=== PATIENT | male | born 1955 | race Caucasian/White ===

== ENCOUNTER 2016-12-31 21:28 | Emergency (ER) | payer MEDICAID ==
[2016-12-31 21:35] VITALS: BP 106/72; PULSE 71; RESP 16; TEMP 97.7; O2SAT 97
--- NOTE | 2016-12-31 22:14 | EDPHY ---
H & P Stated Complaint: Fall down 2 stairs and hurt left elbow denies hitting head Time Seen by Provider: 12/31/16 22:06 HPI/ROS: CHIEF COMPLAINT: Left arm pain HISTORY OF PRESENT ILLNESS: Patient is a 61-year-old man with a history of HIV and seizures who states that he [place] the [place] [facility] [place] He fell onto his left arm. He complains of swelling and pain to his left elbow and hand. This happened several hours ago. He also thinks that he may have strained a muscle in his shoulder. He denies head neck or back pain. He denies loss of consciousness. REVIEW OF SYSTEMS: Constitutional: denies: chills, fever, recent illness, recent injury EENTM: denies: blurred vision, double vision, nose congestion Respiratory: denies: cough, shortness of breath Cardiac: denies: chest pain, irregular heart rate, lightheadedness, palpitations Gastrointestinal/Abdominal: denies: abdominal pain, diarrhea, nausea, vomiting, blood streaked stools Genitourinary: denies: dysuria, frequency, hematuria, pain Musculoskeletal: See HPI Skin: denies: lesions, rash, jaundice, bruising Neurological: denies: headache, numbness, paresthesia, tingling, dizziness, weakness Hematologic/Lymphatic: denies: blood clots, easy bleeding, easy bruising Immunologic/allergic: denies: HIV/AIDS, transplant EXAM: GENERAL: Well-appearing, well-nourished and in no acute distress. HEAD: Atraumatic, normocephalic. EYES: Pupils equal round and reactive to light, extraocular movements intact, sclera anicteric, conjunctiva are normal. ENT: TMs normal, nares patent, oropharynx clear without exudates. Moist mucous membranes. NECK: Normal range of motion, supple without lymphadenopathy or JVD. LUNGS: Breath sounds clear to auscultation bilaterally and equal. No wheezes rales or rhonchi. HEART: Regular rate and rhythm without murmurs, rubs or gallops. ABDOMEN: Soft, nontender, normoactive bowel sounds. No guarding, no rebound. No masses appreciated. BACK: No CVA tenderness, no spinal tenderness, step-offs or deformities EXTREMITIES: Pain to left elbow with minimal swelling. Tenderness or radial head. Pain and swelling over lateral metacarpal bones. Pain with supination. NEUROLOGICAL: Cranial nerves II through XII grossly intact. Normal speech, normal gait. 5/5 strength, normal movement in all extremities, normal sensation PSYCH: Normal mood, normal affect. SKIN: Warm, dry, normal turgor, no visible rashes or lesions. Source: Patient Exam Limitations: No limitations - Personal History Current Tetanus/Diphtheria Vaccine: No Current Tetanus Diphtheria and Acellular Pertussis (TDAP): No - Medical/Surgical History Hx Asthma: No Hx Chronic Respiratory Disease: No Hx Diabetes: No Hx Cardiac Disease: No Hx Renal Disease: No Hx Cirrhosis: No Hx Alcoholism: No Hx HIV/AIDS: Yes Hx Splenectomy or Spleen Trauma: No Other PMH: HIV, SZ, Ortho fx right leg - Family History Significant Family History: No pertinent family hx - Social History Smoking Status: Never smoked Alcohol Use: Sober Drug Use: None Constitutional: Initial Vital Signs Temperature (C) 36.5 C 12/31/16 21:31 Heart Rate 71 12/31/16 21:31 Respiratory Rate 16 12/31/16 21:31 Blood Pressure 106/72 12/31/16 21:31 O2 Sat (%) 97 12/31/16 21:31 O2 Delivery Mode Room Air Allergies/Adverse Reactions: No Known Allergies Allergy (Verified 12/31/16 21:35) Home Medications: Medication Instructions Recorded Levitiraciman 10/22/10 Sustiva 10/22/10 Triameq 05/30/15 Ambien 12/31/16 GABAPENTIN 12/31/16 Medical Decision Making - Diagnostics Imaging Results: Imaging Impressions Elbow X-Ray 12/31/16 22:11 Impression: Moderate elbow joint effusion. This can sometimes be seen with occult fracture. If symptoms persist after 7-10 days, consider repeat imaging. Hand X-Ray 12/31/16 22:11 Impression: 1. Old fracture suspected of the triquetrum with calcifications posteriorly. 2. No acute osseous abnormality seen.. Shoulder X-Ray 12/31/16 22:11 Impression: Normal left shoulder series. Imaging: Discussed imaging studies w/ house calls nurse practitioner Radiologist Procedures: Procedure: Splint placement. A left arm sling splint was applied. After application of the splint I returned and re-examined the patient. The splint was adequately immobilizing the joint and distal to the splint the patient's circulation and sensation was intact. ED Course/Re-evaluation: We discussed the x-ray results. The patient is reassured. We discussed the fact that his elbow x-ray is negative but there is some swelling that could be consistent with an occult fracture. He does have pain over the radial head and supination. I will place him in a sling and have him follow up with Orthopedics. Differential Diagnosis: Partial list of the Differential diagnosis considered include but were not limited to; elbow fracture, contusion, hand fracture and although unlikely based on the history and physical exam, I also considered head injury, neck injury, vascular injury, nerve injury. I discussed these differential diagnoses and the plan with the patient as well as the usual and expected course. The patient understands that the diagnosis is provisional and that in medicine we are not always correct and that further workup is often warranted. Usual and customary warnings were given. All of the patient's questions were answered. The patient was instructed to return to the emergency department should the symptoms at all worsen or return, otherwise to followup with the physician as we discussed. - Data Points Medications Given: Discontinued Medications Hydrocodone Bitart/Acetaminophen ([place] 5/325mg Prepack#6) 1 btl TAKEHOME EDNOW ONE Stop: 12/31/16 23:04 Last Admin: 12/31/16 23:08 Dose: 1 btl Departure - Departure Disposition: Home, Routine, Self-Care Clinical Impression: Elbow pain, left, Left hand pain Condition: Good Instructions: Hydrocodone/Acetaminophen (By mouth), Elbow Fracture (ED) Additional Instructions: You may have an occult elbow fracture. Follow up with Orthopedics for repeat imaging if your pain continues. Referrals: Violeta Carey MD [Primary Care Provider] - As per Instructions Callum Bruce MD [Medical Doctor] - As per Instructions
[2016-12-31] MEDS ORDERED: HYDROCOD/APAP 5/325 PREPACK#6 BTL TAKEHOME ONE (23:03)
== END 2016-12-31 23:34 | disposition home or self-care (01) ==
DX: S59.902A Unspecified injury of left elbow, initial encounter (principal); S69.92XA Unspecified injury of left wrist, hand and finger(s), initial encounter; B20 Human immunodeficiency virus [HIV] disease; W10.8XXA Fall (on) (from) other stairs and steps, initial encounter
CPT/HCPCS: A4565

== ENCOUNTER 2017-05-20 14:28 | Emergency (ER) | payer OTHER, MEDICAID ==
[2017-05-20 14:34] VITALS: RESP 18
--- NOTE | 2017-05-20 14:51 | EDPHY ---
HPI/HX/ROS/PE/MDM Narrative: CHIEF COMPLAINT: Weakness, blurry vision HPI: The patient is a 61 y/o male with a history of HIV complaining of fatigue and having poor vision, onset 6 days ago. For the past 6 days he has felt unsteady, weak, and like he is going to pass out, primarily when walking. When these symptoms begin, he also feels sweaty and has blurry vision. Yesterday he had one episode of non-bloody, acidic vomit. The stated complaint is abdominal pain , but the patient is not currently complaining of this. He is compliant with his seizure and HIV medications. His viral load was last tested on December 2016 and his CD4 was 700 which is normal for him. Denies recent head injury. Denies chest pain, shortness of breath, fever, numbness. REVIEW OF SYSTEMS: Aside from elements discussed in the HPI, a comprehensive 10-point review of systems was reviewed and is negative. PMH: HIV, seizures post head injury SOCIAL HISTORY: Lives in [place], single, not employed PHYSICAL EXAM: General: Patient is alert, in no acute distress. ENT: Eyes are normal to inspection. ENT inspection normal. Neck: Normal inspection. Full range of motion. No menigismus. Respiratory: No respiratory distress. Breath sounds normal bilaterally. Cardiovascular: Regular rate and rhythm. Strong peripheral pulses. Normal cap refill. Abdomen: The abdomen is nontender to palpation. There are no peritoneal signs. There are normal bowel sounds. Back: Normal to inspection. No tenderness to palpation. Skin: Normal color. No rash. Warm and dry. Extremities: Normal appearance. Full range of motion. Neuro: Oriented x3. Normal motor function. Normal sensory function. Normal gait. No cerebellar signs. Cranial nerves intact. Portions of this note were transcribed by an ED scribe. I personally performed the history, physical exam, and medical decision making; and confirm the accuracy of the information in the transcribed note. ED Course: 1538: Spoke with Dr. Jaime, radiologist, patient's head CT is normal. 1517: Laboratory results are normal; RPR pending and will be run at 03:00am. 1518: Reassessed patient and discussed imaging and laboratory findings. He is feeling better after 1L IV NS and would like to eat. I have advised him to call the emergency department tomorrow for the RPR results. Return precautions provided; patient is comfortable with this plan. MDM: This patient presents with fairly vague symptoms of generalized weakness and abnormal bilateral vision. He is stating some theories about how his stomach and brain are linked that I do not quite understand. He has a normal physical exam, relatively normal labs and a negative CTH. He describes himself as hungry and is tolerating PO without difficulty, making serious abdominal pathology unlikely. I think he is safe for outpatient workup. HIV obviously increases differential, but patient states his disease has been well controlled for quite some time. - Data Points Imaging Results: Imaging Impressions Head CT 05/20/17 14:57 Impression: 1. No acute intracranial process. 2. 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 Findings discussed with Emergency Department physician, Jared Rasheed MD at 05/20/2017 15:38. Imaging: Discussed imaging studies w/ inbound call center agent Radiologist, I viewed and interpreted images myself Laboratory Results: Laboratory Results 05/20/17 15:10 05/20/17 15:10 05/20/17 05/20/17 05/20/17 16:45 15:10 15:10 WBC RBC Hgb Hct MCV MCH MCHC RDW Plt Count MPV Neut % (Auto) Lymph % (Auto) Kent % (Auto) Eos % (Auto) Baso % (Auto) Nucleat RBC Rel Count Absolute Neuts (auto) Absolute Lymphs (auto) Absolute Monos (auto) Absolute Eos (auto) Absolute Basos (auto) Absolute Nucleated RBC Immature Gran % Immature Gran # Sodium 143 mEq/L mEq/L (135-145) Potassium 3.8 mEq/L mEq/L (3.5-5.2) Chloride 107 mEq/L mEq/L (97-110) Carbon Dioxide 23 mEq/l mEq/l (22-31) Anion Gap 13 mEq/L mEq/L (8-16) BUN 19 mg/dL mg/dL (7-23) Creatinine 0.9 mg/dL mg/dL (0.7-1.3) Estimated GFR > 60 Glucose 111 mg/dL H mg/dL (70-100) Calcium 8.8 mg/dL mg/dL (8.5-10.4) Total Bilirubin 0.3 mg/dL mg/dL (0.1-1.4) Conjugated Bilirubin 0.2 mg/dL mg/dL (0.0-0.5) Unconjugated Bilirubin 0.1 mg/dL mg/dL (0.0-1.1) AST 17 IU/L IU/L (17-59) ALT 31 IU/L IU/L (21-72) Alkaline Phosphatase 123 IU/L IU/L (38-126) Total Protein 7.1 g/dL g/dL (6.3-8.2) Albumin 4.0 g/dL g/dL (3.5-5.0) Lipase 47 IU/L IU/L (23-300) Urine Color PALE YELLOW Urine Appearance CLEAR Urine pH 8.0 H (5.0-7.5) Ur Specific Darling 1.008 (1.002-1.030) Urine Protein NEGATIVE (NEGATIVE) Urine Ketones NEGATIVE (NEGATIVE) Urine Blood NEGATIVE (NEGATIVE) Urine Nitrate NEGATIVE (NEGATIVE) Urine Bilirubin NEGATIVE (NEGATIVE) Urine Urobilinogen NEGATIVE EU EU (0.2-1.0) Ur Leukocyte Esterase NEGATIVE (NEGATIVE) Urine Glucose NEGATIVE (NEGATIVE) RPR Pending 05/20/17 15:10 WBC 8.68 10^3/uL 10^3/uL (3.80-9.50) RBC 3.97 10^6/uL L 10^6/uL (4.40-6.38) Hgb 14.6 g/dL g/dL (13.7-17.5) Hct 41.2 % % (40.0-51.0) MCV 103.8 fL H fL (81.5-99.8) MCH 36.8 pg H pg (27.9-34.1) MCHC 35.4 g/dL g/dL (32.4-36.7) RDW 12.0 % % (11.5-15.2) Plt Count 214 10^3/uL 10^3/uL (150-400) MPV 9.8 fL fL (8.7-11.7) Neut % (Auto) 78.7 % H % (39.3-74.2) Lymph % (Auto) 15.3 % % (15.0-45.0) Kent % (Auto) 5.3 % % (4.5-13.0) Eos % (Auto) 0.2 % L % (0.6-7.6) Baso % (Auto) 0.2 % L % (0.3-1.7) Nucleat RBC Rel Count 0.0 % % (0.0-0.2) Absolute Neuts (auto) 6.82 10^3/uL H 10^3/uL (1.70-6.50) Absolute Lymphs (auto) 1.33 10^3/uL 10^3/uL (1.00-3.00) Absolute Monos (auto) 0.46 10^3/uL 10^3/uL (0.30-0.80) Absolute Eos (auto) 0.02 10^3/uL L 10^3/uL (0.03-0.40) Absolute Basos (auto) 0.02 10^3/uL 10^3/uL (0.02-0.10) Absolute Nucleated RBC 0.00 10^3/uL 10^3/uL (0-0.01) Immature Gran % 0.3 % % (0.0-1.1) Immature Gran # 0.03 10^3/uL 10^3/uL (0.00-0.10) Sodium Potassium Chloride Carbon Dioxide Anion Gap BUN Creatinine Estimated GFR Glucose Calcium Total Bilirubin Conjugated Bilirubin Unconjugated Bilirubin AST ALT Alkaline Phosphatase Total Protein Albumin Lipase Urine Color Urine Appearance Urine pH Ur Specific Darling Urine Protein Urine Ketones Urine Blood Urine Nitrate Urine Bilirubin Urine Urobilinogen Ur Leukocyte Esterase Urine Glucose RPR Medications Given: Discontinued Medications Sodium Chloride (Ns) 1,000 mls @ 0 mls/hr IV EDNOW ONE; Wide Open PRN Reason: Protocol Stop: 05/20/17 14:58 Last Admin: 05/20/17 15:07 Dose: 1,000 mls General Time Seen by Provider: 05/20/17 14:50 Initial Vital Signs: Initial Vital Signs Temperature (C) 36.8 C 05/20/17 14:32 Heart Rate 70 05/20/17 14:32 Respiratory Rate 18 05/20/17 14:32 Blood Pressure 109/71 05/20/17 14:32 O2 Sat (%) 99 05/20/17 14:32 O2 Delivery Mode Room Air Allergies/Adverse Reactions: No Known Allergies Allergy (Verified 05/20/17 14:32) Home Medications: Medication Instructions Recorded Levitiraciman 08/27/11 Sustiva 10/22/10 Triameq 05/30/15 Ambien 12/31/16 GABAPENTIN 12/31/16 Departure - Departure Disposition: Home, Routine, Self-Care Clinical Impression: Dizziness Condition: Good Instructions: Lightheadedness (ED), Dizziness (ED) Additional Instructions: You need to call the emergency department tomorrow for your RPR results. Follow- up with your primary doctor within 72 hours. Return to the Emergency Department for fever, chest pain, shortness of breath, increasing pain or other worsening of condition. Referrals: Violeta Carey MD [Primary Care Provider] - As per Instructions Report Scribed for: Jared Rasheed Report Scribed by: Melva Schwartz Date of Report: 05/20/17 Time of Report: 14:51
[2017-05-20] MEDS ORDERED: NS 1,000 ML IV ONE (14:57)
[2017-05-20 15:23] LABS: PLATELET COUNT 214 10^3/uL (150-400)
[2017-05-20 17:28] VITALS: BP 129/81; PULSE 60; TEMP 98.6; O2SAT 95
== END 2017-05-20 17:32 | disposition home or self-care (01) ==
DX: R42 Dizziness and giddiness (principal); E86.9 Volume depletion, unspecified; B20 Human immunodeficiency virus [HIV] disease

== ENCOUNTER 2017-11-06 14:08 | Emergency (ER) | payer OTHER, MEDICAID ==
[2017-11-06] MEDS ORDERED: PROPARACAINE 0.5% 15 ML OPHT DROP ONE (14:32)
[2017-11-06] MEDS ORDERED: FLUORESCEIN SODIUM 1 MG STRIP OP ONE (14:32)
--- NOTE | 2017-11-06 15:24 | EDPHY ---
H & P Stated Complaint: CONJUNCTIVAL HEMORRHAGE L EYE SINCE YESTERDAY Time Seen by Provider: 11/06/17 15:15 HPI/ROS: CHIEF COMPLAINT: Subconjunctival hemorrhage HISTORY OF PRESENT ILLNESS: Patient is a 61-year-old man who states that when he woke up this morning he had a subconjunctival hemorrhage in his left eye. He also has a mild foreign body sensation. No pain. No vision changes. No known trauma. No discharge. Severity: Mild Modifying factors: None REVIEW OF SYSTEMS: Constitutional: denies: chills, fever, recent illness, recent injury EENTM: See HPI denies: blurred vision, double vision, nose congestion Respiratory: denies: cough, shortness of breath Cardiac: denies: chest pain, irregular heart rate, lightheadedness, palpitations Gastrointestinal/Abdominal: denies: abdominal pain, diarrhea, nausea, vomiting, blood streaked stools Genitourinary: denies: dysuria, frequency, hematuria, pain Musculoskeletal: denies: joint pain, muscle pain Skin: denies: lesions, rash, jaundice, bruising Neurological: denies: headache, numbness, paresthesia, tingling, dizziness, weakness Hematologic/Lymphatic: denies: blood clots, easy bleeding, easy bruising Immunologic/allergic: denies: HIV/AIDS, transplant 10 systems reviewed and negative except as noted EXAM: GENERAL: Well-appearing, well-nourished and in no acute distress. HEAD: Atraumatic, normocephalic. EYES: Subconjunctival hemorrhage left eye. Does not involve the cornea or iris. No hyphema or hypopyon. No eyelid involvement. Pupils equal round and reactive to light, extraocular movements intact, sclera anicteric. Evaluated with fluorescein and no visible abrasions or foreign bodies. Negative Sahara sign. ENT: TMs normal, nares patent, oropharynx clear without exudates. Moist mucous membranes. NECK: Normal range of motion, supple without lymphadenopathy or JVD. LUNGS: Breath sounds clear to auscultation bilaterally and equal. No wheezes rales or rhonchi. HEART: Regular rate and rhythm without murmurs, rubs or gallops. ABDOMEN: Soft, nontender, normoactive bowel sounds. No guarding, no rebound. No masses appreciated. BACK: No CVA tenderness, no spinal tenderness, step-offs or deformities EXTREMITIES: Normal range of motion, no pitting or edema. No clubbing or cyanosis. NEUROLOGICAL: Cranial nerves II through XII grossly intact. Normal speech, normal gait. 5/5 strength, normal movement in all extremities, normal sensation , normal reflexes PSYCH: Normal mood, normal affect. SKIN: Warm, dry, normal turgor, no visible rashes or lesions. Source: Patient Exam Limitations: No limitations - Personal History Current Tetanus Diphtheria and Acellular Pertussis (TDAP): Unsure - Medical/Surgical History Hx Asthma: No Hx Chronic Respiratory Disease: No Hx Diabetes: No Hx Cardiac Disease: No Hx Renal Disease: No Hx Cirrhosis: No Hx Alcoholism: No Hx HIV/AIDS: Yes Hx Splenectomy or Spleen Trauma: No Other PMH: HIV, SZ, Ortho fx right leg - Family History Significant Family History: No pertinent family hx - Social History Smoking Status: Never smoked Alcohol Use: Sober Drug Use: None Constitutional: Initial Vital Signs Temperature (C) 36.7 C 11/06/17 14:13 Heart Rate 66 11/06/17 14:13 Respiratory Rate 17 11/06/17 14:13 Blood Pressure 129/72 H 11/06/17 14:13 O2 Sat (%) 97 11/06/17 14:13 O2 Delivery Mode Room Air Allergies/Adverse Reactions: No Known Allergies Allergy (Verified 11/06/17 14:12) Home Medications: Medication Instructions Recorded Levitiraciman 10/22/10 Sustiva 10/22/10 Triameq 05/30/15 Ambien 12/31/16 GABAPENTIN 12/31/16 Medical Decision Making ED Course/Re-evaluation: Patient has a simple subconjunctival hemorrhage. We discussed current time study observer binge management. There is no intervention to be done at this time. He understands and is happy with this plan. He declines further workup or testing. Differential Diagnosis: Partial list of the Differential diagnosis considered include but were not limited to; subconjunctival hemorrhage, foreign body, abrasion and although unlikely based on the history and physical exam, I also considered infection, hypopyon, coagulopathy. I discussed these differential diagnoses and the plan with the patient as well as the usual and expected course. The patient understands that the diagnosis is provisional and that in medicine we are not always correct and that further workup is often warranted. Usual and customary warnings were given. All of the patient's questions were answered. The patient was instructed to return to the emergency department should the symptoms at all worsen or return, otherwise to followup with the physician as we discussed. Departure - Departure Disposition: Home, Routine, Self-Care Clinical Impression: Subconjunctival hemorrhage of left eye Condition: Fair Instructions: Subconjunctival Hemorrhage (ED) Referrals: Sheldon Meeks MD [Primary Care Provider] - As per Instructions
[2017-11-06 15:36] VITALS: BP 100/61
== END 2017-11-06 15:35 | disposition home or self-care (01) ==
DX: H11.32 Conjunctival hemorrhage, left eye (principal)

== ENCOUNTER 2017-11-12 09:25 | Emergency (ER) | payer OTHER, MEDICAID ==
--- NOTE | 2017-11-12 09:48 | EDPHY ---
H & P Time Seen by Provider: 11/12/17 09:48 HPI/ROS: CHIEF COMPLAINT: Right hand injury HISTORY OF PRESENT ILLNESS: 61-year-old ambidextrous male complaining of acute right 4th and 5th metacarpal pain when he slipped and fell impacting this area earlier this morning. Reproducible pain with range of motion. Intact skin. No paresthesia. PRIMARY CARE PROVIDER: REVIEW OF SYSTEMS: A ten point review of systems was performed and is negative with the exception of the items mentioned in the HPI PHYSICAL EXAM (Prior to examination, patient consented to physical exam, hands were washed and my usual and customary physical exam procedures followed) 1) GENERAL: Well-developed, well-nourished, alert and oriented. Appears to be in no acute distress. 2) HEAD: Normocephalic 3) HEENT: Pupils equal, round, reactive to light bilaterally. 4) LUNGS: Breathing comfortably. 5) MUSCULOSKELETAL: Soft compartments. Tender to palpation 4th and 5th metacarpal with no deformity or angulation. Normal coloration. 6) SKIN: Intact. Ecchymosis to the 4th and 5th metacarpal noted 7) VASCULAR: pulses and cap refill present are brisk 8) NEUROLOGIC: Radial, ulnar, median nerve function intact with no deficits appreciated on exam DIFFERENTIAL DIAGNOSIS: in no particular order including but not limited to fracture, sprain, compartment syndrome Procedure: Splint An ulnar gutter Ortho Glass splint was applied by ER lens coating technician. After application of the splint I returned and re-examined the patient. The splint was adequately immobilizing the joint and distal to the splint the patient's circulation and sensation were intact. Patient shows no signs of compartment syndrome. Was given orthopedic precautions. Smoking Status: Never smoked Constitutional: Initial Vital Signs Temperature (C) 36.7 C 11/12/17 09:32 Heart Rate 70 11/12/17 09:32 Respiratory Rate 17 11/12/17 09:32 Blood Pressure 109/71 11/12/17 09:32 O2 Sat (%) 97 11/12/17 09:32 O2 Delivery Mode Room Air Allergies/Adverse Reactions: No Known Allergies Allergy (Verified 11/12/17 09:32) Home Medications: Medication Instructions Recorded Levitiraciman 10/22/10 Sustiva 10/22/10 Triameq 05/30/15 Ambien 12/31/16 GABAPENTIN 12/31/16 MDM/Departure - MDM Imaging Results: Imaging Impressions Hand X-Ray 11/12/17 09:48 Impression: Minimally displaced mildly angulated proximal 4th and 5th metacarpal fractures. Images reviewed myself ED Course/Re-evaluation: Patient is neurovascular intact. Re-evaluation with serial exams. I saw this patient independently based on established practice protocols. Care of patient under supervision of secondary supervising physician Dr Og Bettencourt . - Depart Disposition: Home, Routine, Self-Care Clinical Impression: Fracture of fourth metacarpal bone of right hand Qualifiers: Encounter type: initial encounter Fracture type: closed Metacarpal location: base Fracture alignment: displaced Qualified Code(s): S62.314A - Displaced fracture of base of fourth metacarpal bone, right hand, initial encounter for closed fracture Closed fracture of 5th metacarpal Qualifiers: Encounter type: initial encounter Metacarpal location: base Fracture alignment : displaced Laterality: right Qualified Code(s): S62.316A - Displaced fracture of base of fifth metacarpal bone, right hand, initial encounter for closed fracture Condition: Good Instructions: Hand Fracture (ED) Additional Instructions: Return to the ER immediately if you experience discoloration, have worsening pain, numbness, tingling, or any other symptoms that concern you. If you received x-rays in the emergency department today, be advised, that ligamentous , tendon, muscular, and other non-bony injury cannot be fully ruled out. Try to keep your affected extremity elevated above the level of your chest, and keep cold packs on the affected area, for the next 48 hours. Referrals: Gwendolyn Neves MD [Medical Doctor] - 2-3 days, call for appt. (Dr. Gwendolyn Neves is a hand surgeon)
[2017-11-12 11:39] VITALS: BP 144/87
== END 2017-11-12 11:25 | disposition home or self-care (01) ==
PROC: 2W3EX1Z Immobilization of Right Hand using Splint (ICD-10-PCS; principal; 2017-11-12)
DX: S62.314A Displaced fracture of base of fourth metacarpal bone, right hand, initial encounter for closed fracture (principal); S62.316A Displaced fracture of base of fifth metacarpal bone, right hand, initial encounter for closed fracture; W01.0XXA Fall on same level from slipping, tripping and stumbling without subsequent striking against object, initial encounter
CPT/HCPCS: 29125; 73130; 99283; A4565

== ENCOUNTER 2017-11-27 05:59 | Day surgery (SDC) | payer OTHER, MEDICAID ==
--- NOTE | 2017-11-26 09:28 | SOAPPROG ---
SOAP Progress Note Assessment/Plan: HISTORY AND PHYSICAL Name REILLY RAI (61yo, M) ID# [id number] 1955 Service Dept. MAIN OFFICE Provider CRISS FOREMAN M.D. Insurance Med Primary: [place] (MED[place]ARE) Insurance # : [id number] Employer Name : [employer] Secondary: [place] Insurance # : [id number] Employer Name : [employer] Prescription: CMX - Member is eligible. details Chief Complaint None recorded. Vitals None recorded. Allergies Allergies not reviewed (last reviewed 01/24/2017) NKDA Medications Reviewed Medications gabapentin 300 mg capsule TK ONE C PO UP TO QID 10/30/17 filled [facility] levETIRAcetam 1,000 mg tablet TK 1 T PO BID 08/23/17 filled [facility] levETIRAcetam 500 mg tablet 10/03/17 filled [facility] Triumeq 600 mg-50 mg-300 mg tablet TK 1 T PO ONCE DAILY 11/01/17 filled [facility] Vaccines None recorded. Problems Reviewed Problems No known problems Family History Family History not reviewed (last reviewed 01/24/2017) Social History Social History not reviewed (last reviewed 01/24/2017) Smoking Status: Never smoker Occupation: [employer] Employer: [employer] Alcohol intake: None Exercise level: Moderate Sporting activities: chainged Hand Dominance: Right Education: Less than 8th Grade Live alone or with others?: with others Surgical History Surgical History not reviewed (last reviewed 01/24/2017) Patient indicated no previous surgeries on (11/14/2017) Past Medical History Past Medical History not reviewed (last reviewed 01/24/2017) Blood Clots: Y HIV or AIDS: Y Seizures/Epilepsy: Y Screening None recorded. HPI This is a very pleasant 61 year old male with: -11/11/17 -- right small and right ring finger metacarpal base fractures after a fall onto his RUE -11/12/17 -- [facility] ED -- right hand radiographs and ulnar gutter splinting He presents today for his first hand surgery evaluation. ROS None recorded. Physical Exam Patient is a 61-year-old male. Bilateral finger examination Inspection/palpation: Right: Ulnar gutter splint CDI Left: Soft, no tenderness to palpation. Finger ROM Index MCP: 0-80 / 0-80 / 0-80 PIP: 0-105 / 0-105 / 0-105 DIP: 0-75 / 0-75 / 0-75 Long MCP: 0-90 / 0-90 / 0-90 PIP: 0-105 / 0-105 / 0-105 DIP: 0-75 / 0-75 / 0-75 Ring MCP: SALLIE / 0-95 / 0-95 PIP: SALLIE / 0-105 / 0-105 DIP: SALLIE / 0-75 / 0-75 Small MCP: SALLIE / 0-100 / 0-100 PIP: SALLIE / 0-105 / 0-105 DIP: SALLIE / 0-75 / 0-75 Finger motor and sensory Index FDS: + / + / + FDP: + / + / + EDC: + / + / + RDN: + / + / + UDN: + / + / + Long FDS: + / + / + FDP: + / + / + EDC: + / + / + RDN: + / + / + UDN: + / + / + Ring FDS: SALLIE / + / + FDP: + / + / + EDC: SALLIE / + / + RDN: + / + / + UDN: + / + / + Small FDS: SALLIE / + / + FDP: + / + / + EDC: SALLIE / + / + RDN: + / + / + UDN: + / + / + Assessment / Plan This is a very pleasant 61 year old male with: -11/11/17 -- right small and right ring finger metacarpal base fractures after a fall onto his RUE -11/12/17 -- [facility] -- right hand radiographs and ulnar gutter splinting - I have discussed with the patient the risks, benefits, alternatives and complications associated with both non-operative (specifically, observation) and operative (specifically, right small and right ring finger metacarpal CRPF and/or ORIF) forms of treatment - The patient fully understands the risks, benefits, alternatives, and complications associated with these forms of treatment and wishes to proceed with operative intervention as outlined above - He has signed the informed consent form for surgery and surgery will be scheduled for the near future. - In the interim, he will remain in his current splint and continue to be strict NWB on his RUE 1. Fracture of metacarpal bone - Right S62.316A: Displaced fracture of base of fifth metacarpal bone, right hand, initial encounter for closed fracture S62.314A: Displaced fracture of base of fourth metacarpal bone, right hand, initial encounter for closed fracture XR, HAND Side: RIGHT right small and ring finger MC base fractures (shortened, angulated) Return to Office None recorded. Encounter Sign-Off Encounter signed-off by Criss Foreman M.D. 11/26/17 09:27 ICD10 Worksheet Patient Problems: Problems Problem Status Onset Fracture of metacarpal of right hand, closed Acute - ICD10 Problem Qualifiers (1) Fracture of metacarpal of right hand, closed
[2017-11-27] MEDS ORDERED: LR 1,000 ML IV ONE (06:19)
--- NOTE | 2017-11-27 07:08 | PDHPUP ---
History & Physical Update H&P update statement: This history and physical update is based on an assessment of the patient which was completed after admission or registration (within 24 hours), but prior to the surgery/procedure. H&P update: H&P reviewed & patient examined, no change in patient's condition since H&P completed
[2017-11-27] MEDS ORDERED: ceFAZolin 2 GM/DEXTROSE 100 ML IV ONE (07:30)
[2017-11-27] MEDS ORDERED: LIDOCAINE 1% 300 MG/30 ML SDV ONE (08:04)
[2017-11-27] MEDS ORDERED: BUPIVACAINE 0.5% 30 ML SDV ONE (08:04)
[2017-11-27] MEDS ORDERED: MIDAZOLAM 2 MG/2 ML VIAL IVP ONE (09:28)
--- NOTE | 2017-11-27 09:28 | PDANEPAE ---
ANE History of Present Illness RIGHT FINGER FRX ANE Past Medical History - Cardiovascular History Hx Hypertension: No Hx Arrhythmias: No Hx Chest Pain: No Hx Coronary Artery / Peripheral Vascular Disease: No Hx CHF / Valvular Disease: No Hx Palpitations: No - Pulmonary History Hx COPD: No Hx Asthma/Reactive Airway Disease: No Hx Recent Upper Respiratory Infection: No Hx Oxygen in Use at Home: No Hx Sleep Apnea: No - Endocrine History Hx Diabetes: No Hypothyroid: No Hyperthyroid: No Obesity: no - Renal History Hx Renal Disorders: No - Liver History Hx Hepatic Disorders: No - Neurological & Psychiatric Hx Hx Neurological and Psychiatric Disorders: Yes Neurological / Psychiatric History Comment: SEIZURE D/O LAST UNKNOWN - Other Health History Other Health History: hiv ANE Review of Systems Review of systems is: negative Review of Systems: - Exercise capacity Exercise capacity: >=4 METS ANE Patient History - Allergies Allergies/Adverse Reactions: No Known Allergies Allergy (Verified 11/12/17 09:32) - Home Medications Home Medications: Levitiraciman 10/22/10 [Last Taken 11/26/17] Sustiva 10/22/10 [Last Taken 11/26/17] Triameq 05/30/15 [Last Taken 11/26/17] GABAPENTIN 12/31/16 [Last Taken 11/26/17] - NPO status NPO Status: no food or drink >8 hours NPO Since - Liquids (Date): 11/26/17 NPO Since - Liquids (Time): 22:00 NPO Since - Solids (Date): 11/26/17 NPO Since - Solids (Time): 22:00 - Anes Hx Anes Hx: no prior problems - Smoking Hx Smoking Status: Never smoked Marijuana use: Yes - Alcohol Use Alcohol Use: None ANE Labs/Vital Signs - Vital Signs Vital Signs: reviewed preoperatively; see RN documention for details Blood Pressure: 147/76 Heart Rate: 66 Respiratory Rate: 16 O2 Sat (%): 97 Height: 175.26 cm Weight: 63.503 kg ANE Physical Exam - Airway Neck exam: FROM Mallampati Score: Class 2 Mouth exam: poor dentition - Pulmonary Pulmonary: no respiratory distress - Cardiovascular Cardiovascular: regular rate and rhythym - ASA Status ASA Status: III ANE Anesthesia Plan Anesthesia Plan: GA w LMA
[2017-11-27] MEDS ORDERED: LIDOCAINE 2% 2 ML INJ ONE (09:42)
[2017-11-27] MEDS ORDERED: PROPOFOL 200 MG/20 ML VIAL ONE (09:42)
[2017-11-27] MEDS ORDERED: fentaNYL 100 MCG/2 ML INJ ONE ×4 (09:42→11:57)
[2017-11-27] MEDS ORDERED: DEXAMETHASONE 4 MG/ML VIAL ONE (09:42)
[2017-11-27] MEDS ORDERED: ONDANSETRON 4 MG/2 ML VIAL ONE (09:42)
[2017-11-27] MEDS ORDERED: KETOROLAC 30 MG/1 ML SDV ONE (10:42)
[2017-11-27] MEDS ORDERED: PROMETHAZINE HCL 25 MG/ML INJ IVP PRN (11:10)
[2017-11-27] MEDS ORDERED: HYDROCODONE/APAP 5/325 TAB PO PRN (11:10)
[2017-11-27] MEDS ORDERED: NALOXONE HCL 0.4 MG/ML INJ IVP PRN (11:10)
[2017-11-27] MEDS ORDERED: ONDANSETRON 4 MG/2 ML VIAL IVP PRN (11:10)
--- NOTE | 2017-11-27 11:10 | POSTANESTH ---
Post Anesthetic Evaluation Cardiovascular Status: Normal, Stable Respiratory Status: Normal, Stable Level of Consciousness/Mental Status: Can Participate in Eval Pain Control: Adequate, Prn Tx Ordered Nausea/Vomiting Control: Adequate, Prn Tx Ordered Complications Possibly Related to Anesthesia: None Noted
[2017-11-27] MEDS: fentaNYL 100 MCG/2 ML INJ IVP PRN ×4 (11:38→12:31)
[2017-11-27] MEDS ORDERED: HYDROCODONE/APAP 5/325 TAB ONE (12:28)
[2017-11-27 14:02] VITALS: BP 121/71
--- NOTE | 2017-11-28 06:18 | GOP ---
PATIENT: REILLY ROMERO DATE OF SERVICE: 11/27/17 PATIENT DATE OF : 1955 SURGEON: Jackson Archuleta M.D. PULLER THROUGH: Brandy Herzog PA-C Mrs. Mari assistance was medically necessary for patient positioning and the retraction of vital structures. ANESTHESIA: General / regional anesthesia by surgeon PREOPERATIVE DIAGNOSIS: Right small finger metacarpal base fracture (ICD-10 code S62.316A right small finger metacarpal base fracture). Right ring finger metacarpal base fracture (ICD-10 code S62.314A right ring finger metacarpal base fracture) POSTOPERATIVE DIAGNOSIS: Right small finger metacarpal base malunion (ICD-10 code S62.316P -- right small finger metacarpal base malunion) Right ring finger metacarpal base fracture (ICD-10 code S62.314A right ring finger metacarpal base fracture) OPERATIVE PROCEDURES: CPT code 05426 Right small finger metacarpal osteotomy CPT code 58856 Right small finger metacarpal open reduction and internal fixation CPT code 08630 Right ring finger metacarpal closed reduction and percutaneous fixation CPT code 92085 - Fluoroscopy by surgeon up to 1 hour CPT code 04656 - Application of a short arm splint Modifier 47- Regional anesthesia by surgeon ESTIMATED BLOOD LOSS: 0.2cc COMPLICATIONS: None IMPLANTS: Three 0.045 C-wires TOURNIQUET TIME: 44 minutes at 250 mmHg. BRIEF CLINICAL NOTE: This is a very pleasant 61 year old male with a significant history for a right small finger metacarpal base fracture and a right ring finger metacarpal base fracture. As such, I discussed the risks, benefits, alternatives, and complications associated with both non-operative ( specifically, immobilization) and operative (specifically, right small finger metacarpal and right ring finger metacarpal closed and/or open reduction and internal fixation) forms of treatment. The patient fully understood the risks, benefits, alternatives, and complications associated with both forms of treatment and wished to proceed with operative intervention as outlined above. The patient signed the informed consent form for surgery. OPERATIVE NOTE: On the day of surgery, all of the patients questions were answered. The patient was then transferred from the pre-operative area into the operating room and a formal, Time-Out procedure was performed. The patient was identified by name, medical record number, social security number, and date of . In addition, the patients right upper extremity was identified as the correct portion of the patients body for surgery with the patients right small and right ring finger metacarpals being identified as the correct portions of that extremity for surgery. The anesthesia team administered pre-operative antibiotics for prophylaxis. The brachium was padded with webril and an 18-inch tourniquet was applied. The extremity was then prepped and draped in the normal sterile fashion. A closed reduction of the right small finger was attempted. However, the right small finger metacarpal could not be reduced with closed techniques due to early malunion. As such, a sterile marking pen was then utilized to nabeel out a dorsal longitudinal incision overlying the base of the right small finger metacarpal. An Esmarch was then utilized to exsanguinate the right upper extremity and the tourniquet was inflated to 250 mmHg. A #15 blade was then used to incise the skin overlying the right small finger metacarpal. Meticulous hemostasis was obtained in the subcutaneous plane. Superficial sensory nerve branches were identified and protected. The extensor digitorum communis to the small finger and the extensor digiti minimi were both identified and protected. Dissection was then carried down to the level of the periosteum overlying the dorsal aspect of the metacarpal. The periosteum was split longitudinally to expose the underlying malunion site. The malunion site was then carefully deconstructed to recreate the original fracture planes. The right small finger metacarpal fracture fragments were then reduced utilizing a small [id number]-fiauv reduction forceps. In addition, the right ring finger metacarpal was reduced with closed techniques. Reduction of the right small and ring finger metacarpals was confirmed with PA, lateral, and oblique C- arm images. Three 0.045 C-wires were then inserted in an ulnar to radial direction from the right small finger metacarpal and into the right ring finger metacarpal to maintain the reductions. Final PA, lateral, and oblique C-arm images were obtained. All images demonstrated excellent reduction at the site of the fractures as well as appropriate implant positioning and length. These images were printed and saved. The wound was copiously irrigated with sterile normal saline. The periosteum was re-approximated overlying the right small finger metacarpal with 3-0 Vicryl sutures. The subcutaneous plane was re-approximated with 3-0 Vicryl sutures and the skin was re-approximated with a running 4-0 Monocryl. The skin was then cleaned with sterile normal saline and dried. Dermabond was applied to the incision. A mixture of 1% lidocaine and 0.5% Marcaine was utilized to perform regional block of the operative sites. Xeroform gauze dressings were applied to the incision and the pin sites followed by a dry sterile dressing and a short arm splint. Once the splint was completely in place, the tourniquet was deflated. After complete deflation of the tourniquet, all fingers and the thumb demonstrated brisk capillary refill. The patient was then reversed from the anesthesia and transferred from the operating room table to the post-operative gurney and transferred from the operating room to post-anesthesia care unit in stable condition. POSTOPERATIVE PLAN: The patient will remain in the current splint and dressing for the next three week. During this time, the patient will remain strict non- weight-bearing on the operative extremity. I will see the patient back in the office in 3 weeks at which point the original splint will be removed and the patient will be transitioned to a removable ulnar gutter orthoplast and started on a course of certified hand therapy. /[id number]/MODL MTDD
== END 2017-11-27 14:02 | disposition home or self-care (01) ==
LOC: FSGY 05:59
PROVIDERS: ATTEND Orthopaedic Surgery Hand Surgery
PROC: 0PSP04Z Reposition Right Metacarpal with Internal Fixation Device, Open Approach (ICD-10-PCS; principal; 2017-11-27 09:00)
DX: S62.314A Displaced fracture of base of fourth metacarpal bone, right hand, initial encounter for closed fracture (principal); S62.316P Displaced fracture of base of fifth metacarpal bone, right hand, subsequent encounter for fracture with malunion; W19.XXXA Unspecified fall, initial encounter
CPT/HCPCS: C1713; J0690; J1100; J1885; J2250; J2405; J2704; J3010

== ENCOUNTER 2018-05-25 10:02 | Emergency (ER) | payer OTHER, MEDICAID ==
[2018-05-25] MEDS ORDERED: NS 1,000 ML IV ONE (10:47)
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
[2018-05-25 11:59] LABS: PLATELET COUNT 227 10^3/uL (150-400)
[2018-05-25 12:20] VITALS: BP 116/69
== END 2018-05-25 12:21 | disposition home or self-care (01) ==
LOC: EDUNIT#
DX: S00.81XA Abrasion of other part of head, initial encounter (principal); G40.909 Epilepsy, unspecified, not intractable, without status epilepticus; B20 Human immunodeficiency virus [HIV] disease; E86.9 Volume depletion, unspecified; W19.XXXA Unspecified fall, initial encounter; Y92.009 Unspecified place in unspecified non-institutional (private) residence as the place of occurrence of the external cause

== ENCOUNTER 2018-06-19 19:57 | Emergency (ER) | payer OTHER, MEDICAID ==
[2018-06-19] MEDS ORDERED: ACETAMINOPHEN 500 MG TAB PO ONE (20:33)
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
[2018-06-19 21:36] VITALS: BP 130/77
== END 2018-06-19 21:38 | disposition home or self-care (01) ==
LOC: EEVIPCON 19:57
DX: M25.522 Pain in left elbow (principal); M54.2 Cervicalgia; B20 Human immunodeficiency virus [HIV] disease; B19.20 Unspecified viral hepatitis C without hepatic coma

== ENCOUNTER 2018-08-09 10:46 | Emergency (ER) | payer OTHER, MEDICAID | END 2018-08-09 12:15 | disposition home or self-care (01) ==